=== PATIENT | female | born 1950 | race Caucasian/White ===

== ENCOUNTER 2017-02-25 09:19 | Outpatient (CLI) | payer MEDICARE ==
[2015-06-06 11:46] VITALS: BP 143/74
[2017-02-25 09:50] LABS: BASOPHILS % 0.2 (0.0-1.5); EOSINOPHILS % 3.3 % (0.0-6.8); MEAN CORPUSCULAR HEMOGLOBIN 29.4 pg (28.0-34.0); MEAN CORPUSCULAR VOLUME 93.4 fl (80.0-100.0); MONOCYTES % 5.5 % (0.0-11.0); NEUTROPHILS # 4.3 # k/uL (1.4-7.7)
[2017-02-25 10:13] LABS: eGFR (African) > 60; eGFR (Non-African) > 60
--- NOTE | 2017-02-25 11:46 | Diagnostic Imaging Report ---
[facility] [id number] [facility].[address] [id number] Report Submission Date: Feb 25, 2017 11:20:14 AM PHYSICIAN PRESIDENT Patient Study Name: YISEL PORTER Date: Feb 25, 2017 9:47:03 AM PHYSICIAN PRESIDENT Modality Type: US Gender: F Description: TRANSVAGINAL PELVIS : 54 Institution: [facility] Physician: [facility] Examination: Ultrasound pelvis History: Fibroids Comparison exams: None available Findings: Sonographic evaluation of the pelvis demonstrates uterus measuring 8.4 x 5.4 x 6.2 cm. Myometrium diffusely inhomogeneous. Endometrial complex measures 11.9 mm. Ovaries not visualized. Impression: Diffusely inhomogeneous uterus consistent with significant myomatous infiltration. Significantly thickened endometrial complex - endometrial biopsy recommended if not already performed. Electronically signed on Feb 25, 2017 11:20:14 AM PHYSICIAN PRESIDENT by: Yony POLLOCK
== END 2017-02-25 09:20 ==
LOC: RAD 09:19
PROVIDERS: ATTEND Family Medicine
DX: D25.9 Leiomyoma of uterus, unspecified (principal); Z86.2 Personal history of diseases of the blood and blood-forming organs and certain disorders involving the immune mechanism; I10 Essential (primary) hypertension
CPT/HCPCS: 36415; 76830; 80053; 80061; 85025

== ENCOUNTER 2017-03-02 07:58 | Outpatient (CLI) | payer MEDICARE ==
[2015-06-06 11:46] VITALS: BP 143/74
== END 2017-03-02 08:22 ==
LOC: LAB 07:58
PROVIDERS: ATTEND Family Medicine
DX: R73.9 Hyperglycemia, unspecified (principal)
CPT/HCPCS: 36415; 83036

== ENCOUNTER 2017-08-16 13:54 | Outpatient (CLI) | payer MEDICARE ==
[2015-06-06 11:46] VITALS: BP 143/74
== END 2017-08-16 13:55 ==
LOC: LAB 13:54
PROVIDERS: ATTEND Family Medicine
DX: E11.9 Type 2 diabetes mellitus without complications (principal)
CPT/HCPCS: 36415; 83036